=== PATIENT | male | born 1990 | race Hispanic/Latino ===

== ENCOUNTER 2024-04-26 10:55 | Emergency (ER) | payer MEDICARE, SELFPAY ==
[2024-04-26 11:00] VITALS: BP 136/82
--- NOTE | 2024-04-26 12:02 | ED.GENMED ---
History of Present Illness
General
Chief Complaint: Musculo-Skeletal Complaint
Source: patient
Exam Limitations: none
Time Seen by Provider: 04/26/24 11:30
Nursing documentation reviewed up to this point in time: agreed with
History of Present Illness
History of Present Illness:
34 y/o M with h/o liver lac from trauma, substance abuse history, no longer
here with atraumatic r sided lumbar pain ongoing for a few weeks
he has an active job
but doesn't recall injury
but then yesterday after working, pt seems to have worsening pain, it does wrap slightly to right flank with movement, not down leg but he did get nauseated from pain
no fever, chills, urinary sypmtoms, vomiting,
pain is very positional worse with bending and changing positions and also worse with palpation
he has tried motrin
no numnbess/tingling/weakness in the legs
Past History
Past History
ED Past Medical History: Other (Irregular heartbeat, substance abuse)
ED Past Surgical History: Other (Laparotomy due to liver laceration)
Social History
Tobacco: Non-smoker
Alcohol: None
Drug: None
Personal: Single
Living: with family
Employment: Employed
Family History
Family History: Other (Noncontributory)
Review of Systems
Review of Systems
Allergies reviewed?: Yes
All Other Systems: Not applicable
Phy Exam
Physical Exam
Physical Exam:
GENERAL: Alert , in no apparent distress, comfortable at rest
HEAD: NCAT
NECK: no midline tenderness, active ROM intact, no paraspinal muscle tenderness;
CARDIAC: Regular rate and rhythm, no edema
LUNGS: Clear breath sounds bilaterally, no acute respiratory distress, no wheezes/rales/rhonchi
ABDOMEN: Soft, without focal tenderness, no r/g, no cvat, normal bowel sounds, nondistended
no flank tenderness on exam
NEUROLOGICAL: Alert and oriented, no focal neuro deficits, CN intact, 5/5 strength, sensation intact,
SKIN: Warm and dry,
MUSCULOSKELETAL: No edema, well perfused. Normal inspection of the right hip, right leg
Patient has no tenderness to palpation of the hip, minimal tenderness in the SI joint
Back: No midline tenderness, moderate right paraspinal muscle tenderness on exam, no swelling
negative straight leg raise Bilaterally
PSYCH: Normal and appropriate interaction.
Course
Orders/Labs/Results
Orders:
Orders
04/26/24 12:01
Ketorolac [Toradol] 30 mg IM NOW STA
04/26/24 12:05
Urinalysis Reflex To Culture Urgent
Date Specimen was Collected: 04/26/24
Time Specimen was Collected: 12:04
04/26/24 12:38
Lumbar Spine Complete, 4 View [CR Lumbar Spine Comp Min 4 Vw*] Urgent
Comment:
Reason For Exam: low back pain
Vital Signs
Initial and Last Documented VS:
Initial Vital Signs
Temp Pulse Resp BP Pulse Ox
98.1 F 58 16 136/82 86
04/26/24 11:00 04/26/24 11:00 04/26/24 11:00 04/26/24 11:00 04/26/24 11:00
Last Documented Vital Signs
Temp Pulse Resp BP Pulse Ox
98.1 F 58 16 136/82 86
04/26/24 11:00 04/26/24 11:00 04/26/24 12:00 04/26/24 11:00 04/26/24 11:00
MDM/Problems Addressed
Differential Diagnosis Includes:
msk back pain, lumbar strain, radiculopathy, kidney stone
MDM/Problems Addressed:
34 y/o M
here with right sided lumbar back pain with some mild radiation to flank
onset of sypmtoms week sago but worse yesterday
no numbness/tingling/weakness, no radiation of pain in leg
but he felt his knee buckle todya when pain was bad
no incotnience
pain wors with movement
tender right si joint, righ tparaspinal lumbar region
neg straight leg raise
normal strength
pain with flexion
no abdominal tenderness
unlikely renal colic based on pain and ua being neg
xrays indep reviewed, neg
steroid pack, tylenol, muscle relaxant
*Critical Care Note
Total Time (30-74mins, 75-104mins- exclusive of procedures): Not Applicable
ED Attending Note
-
Portions of this chart may have been created with voice recognition software.� Occasional wrong word or��sound alike� substitutions may have occurred due to the inherent limitations of voice recognition software.
Discharge Plan
Departure
Patient Disposition: Home (Routine Discharge)
Date of Disposition: 04/26/24
Time of Disposition: 13:33
Patient with high blood pressure during this ER visit?: No
Condition: Fair
Discharge Problem:
Lumbosacral strain
Instructions: Low Back Pain (DC)
Prescriptions:
New
methylprednisolone [Medrol (Shalom)] 4 mg tablets,dose pack
See Rx Instructions .ROUTE .COMPLEX Qty: 21 0RF
Rx Instructions:
orally per package directions
acetaminophen [Tylenol] 325 mg tablet
650 mg PO Q6H PRN (Reason: Pain) Qty: 24 0RF
cyclobenzaprine 5 mg tablet
5 mg PO HS PRN (Reason: muscle spasm) Qty: 7 0RF
No Action
cephalexin 500 MG capsule
500 mg PO QID Qty: 28 0RF
azithromycin [Zithromax Z-Shalom] 250 mg tablet
250 mg PO DAILY 6 Days Qty: 6 0RF
methylprednisolone [Medrol (Shalom)] 4 mg tablets,dose pack
See Rx Instructions .ROUTE .COMPLEX Qty: 21 0RF
Rx Instructions:
orally per package directions
tizanidine 4 mg capsule
4 mg PO HS PRN (Reason: muscle spasticity) Qty: 10 0RF
ondansetron 8 mg tablet,disintegrating
8 mg PO TID PRN (Reason: nausea and vomiting) Qty: 30 0RF
prednisone 20 mg tablet
20 mg PO BID Qty: 14 0RF
Referrals:
NONE,* [Family Provider] -
Activity Restrictions/Additional Instructions:
Your back x-rays appear normal. This is likely musculoskeletal back pain. Try the steroid pack starting tomorrow as directed. Follow the instructions on the pack. Take Tylenol 2 tablets 3 times a day for pain. At night you can use a muscle
relaxer. Follow-up with your family doctor for continued symptoms. Return for leg weakness, severe numbness, inability to walk, fever or chills, urinary symptoms, vomiting or any concerns
Interventions
Interventions:
*Risk Screen - Suicide Last Done: 04/26/24 11:17
*General Assessment Last Done: 04/26/24 11:17
*Neglect/Abuse Screening Last Done: 04/26/24 11:17
ED- Fall Risk Assessment Last Done: 04/26/24 11:17
ED-Musculoskeletal Assessment Last Done: 04/26/24 11:17
Discharge Date and Time
Print Language: CENTRAL AFRICAN
[2024-04-26] MEDS: TORADOL 30 MG IM (12:08)
[2024-04-26 12:29] LABS: Urine Albumin Negative (Neg - Trace); Urine Bilirubin Negative (Negative); Urine Character Clear (Clear); Urine Color Yellow; Urine Glucose Negative (Negative); Urine Ketone Negative (Negative); Urine Leukocyte Negative (Negative); Urine Nitrite Negative (Negative); Urine Occult Blood Negative (Negative); Urine Specific Gravity 1.015 (<1.030); Urine Urobilinogen Negative (Neg - 1+)
== END 2024-04-26 13:38 | disposition home or self-care (01) ==
LOC: EMR 10:55
PROVIDERS: Physician Assistant; EMERGENCY PHYSICIAN Emergency Medicine
DX: S39.012A Strain of muscle, fascia and tendon of lower back, initial encounter (principal); X58.XXXA Exposure to other specified factors, initial encounter; I49.9 Cardiac arrhythmia, unspecified; F19.10 Other psychoactive substance abuse, uncomplicated
CPT/HCPCS: 99282; 96372; 72110; 81003